=== PATIENT | female | born 1935 | race Caucasian/White ===

== ENCOUNTER 2019-07-31 19:01 | Inpatient (IN) | payer OTHER, MEDICARE ==
[~2019-07-31] VITALS: Ht 152.4 cm; Wt 57.2 kg
[~2019-07-31 19:01] MED LIST: ALDACTONE25 MG PO; ASPIRIN81 M2 PO; BENTYL 20 MG TA20 M1 PO; BETAMETHASONE V15 GM TOP; CELEBREX 200 M200 M1 PO; D3-5050000 UNIT PO; FEMARA2.5 MG PO; FOLBIC RF TABL1 EACH PO; LEVOCETIRIZINE D5 MG PO; LIDODERM1 EACH TRANSDERM; LISINOPRIL2.5 MG PO; MEDROLDOSEPACK PO; NEURONTIN 300300 M1 PO; NORCO 5-325 TA1 EACH PO; OMEPRAZOLE 20 M20 M1 PO; PAXIL10 MG PO; PROLOPRIM100 MG PO; ROXICODONE5 MG PO; TRAZODONE HCL50 MG PO; UNICOMPLEX M TA1 TA1 PO; ZOCOR 10 MG TAB10 M1 PO
[2019-07-31 19:04] VITALS: BP 130/78
[2019-07-31 19:49] LABS: HEMATOCRIT 40.2 % (37.0-47.0); HEMOGLOBIN 12.9 gm/dL (12.0-15.0); MCH 29.2 pg (26.0-34.0); MCHC 32.1 g/dL (28.0-37.0); MCV 90.9 fL (80.0-100.0); PLATELET COUNT 223 thou/uL (150-400); RBC 4.42 mil/uL (4.20-5.00); RDW 13.7 % (10.5-14.5); WBC 3.4 thou/uL (4.0-11.0)
[2019-07-31 19:54] LABS: CREATININE 1.3 mg/dL (0.6-1.0); POTASSIUM 4.4 mmol/L (3.5-5.1)
[2019-07-31 20:01] LABS: ALBUMIN 4.8 g/dL (3.4-5.0); TOTAL BILIRUBIN 0.3 mg/dL (<0.1-1.0)
[2019-07-31 20:21] LABS: ABSOLUTE NEUTROPHILS 1.2 thou/uL (1.4-8.2)
[2019-07-31 20:22] LABS: ANISOCYTOSIS 1+
[2019-07-31 21:11] LABS: ICTOTEST (BILI CONFIRMATORY) Negative (Negative); URINE BILIRUBIN NEGATIVE (Negative); URINE BLOOD 2+ (Negative); URINE CLARITY CLEAR; URINE COLOR YELLOW; URINE GLUCOSE-RANDOM* NEGATIVE (Negative); URINE KETONES TRACE (Negative); URINE LEUKOCYTES-REFLEX NEGATIVE (Negative); URINE NITRITE-REFLEX NEGATIVE (Negative); URINE PROTEIN (DIPSTICK) 1+ (Negative); URINE SPECIFIC GRAVITY >= 1.030 (1.005-1.035); URINE UROBILINOGEN 0.2 E.U./dl (0.2-1.0)
[2019-07-31 21:35] LABS: CASTS None Seen /LPF (None Seen); SQUAMOUS 0-3 Few /LPF (0-3)
[2019-07-31 21:36] LABS: AMORPHOUS URATES Moderate /LPF (None Seen); BACTERIA-REFLEX 1-9 Few /HPF (None Seen); HYALINE CASTS 0-3 Few /LPF (None Seen); URINE RBC 0-2 Rare /HPF (0-2)
[2019-07-31 21:37] LABS: URINE WBC-REFLEX None Seen /HPF (0-5)
[2019-08-01] VITALS (9 sets, daily range): BP systolic 101–130; BP diastolic 57–67
--- NOTE | 2019-08-01 07:31 | NUR ---
Patient arrived at 0635 to the unit via stretcher accompanied by her . Patient settled in bed and placed on the cardiac rehabilitation program director. Report given to oncoming RN. Care relinquished.
--- NOTE | 2019-08-01 08:21 | EKG ---
[facility] [place] [address] ELECTROCARDIOGRAM REPORT Name: LOUIS LEE I Room #: 248-P ADM IN M.R.#: [id number] Admission: 07/31/19 Attend Phys: Alonso Moreno MD Discharge: Date of : 35 Report #: [id number] THIS REPORT FOR: cc: Pernell Ronquillo MD, Bernard O. MD Couchonnal, Luis F. MD ~ THIS REPORT FOR: //name// [facility] ED Test Date: 2019-07-31 Test Time: 19:53:32 Pat Name: LOUIS LEE Department: Room: 248 Gender: F Parliamentary Counsel: no : 1935 Requested By: Kathryn Donato Order Number: [id number] MD: Joshua Matthew Measurements Intervals [place] Rate: 139 P: 192 WY: 129 QRS: 79 QRSD: 117 T: -11 QT: 315 QTc: 479 Interpretive Statements Sinus tachycardia Right bundle branch block No previous ECG available for comparison Electronically Signed On 08-01-2019 8:20:24 EFFICIENCY ENGINEER by Joshua Matthew [email or web address] <ELECTRONICALLY SIGNED> By: Joshua Matthew MD 08/01/19819 52 52 Joshua Matthew MD /EPI
[2019-08-01 09:34] LABS: HEMATOCRIT 30.5 % (37.0-47.0); MCH 29.4 pg (26.0-34.0); MCHC 32.5 g/dL (28.0-37.0); MCV 90.5 fL (80.0-100.0); RBC 3.37 mil/uL (4.20-5.00); RDW 13.3 % (10.5-14.5); WBC 3.1 thou/uL (4.0-11.0)
[2019-08-01 09:37] LABS: HEMOGLOBIN 9.9 gm/dL (12.0-15.0)
[2019-08-01 09:45] LABS: CALCIUM 8.9 mg/dL (8.5-10.1); CREATININE 0.9 mg/dL (0.6-1.0); POTASSIUM 3.7 mmol/L (3.5-5.1)
--- NOTE | 2019-08-01 09:57 | NUR ---
chart review. flue lining dipper for gi polish visit, pt going to think about upper and lower colon scope possible tomorrow. pt in room with spouse and daughter. pt goes by pat. pt is a & o x 4, pleasant and able to make her needs know. intro to cm, transition of care and hh. " oh i need to get cleaned up i am going again, its soaked. bedside nurse and cm changed bedding and clean linen and gown. pt and spouse tayler reported " live in apartment, ground level. no steps. independent. manage own medication. hx of breast ca with bilat mastectomy years ago. use cane out side of the home. stopped driving after bilat knee replacement and then just had hip done as well. had hh for bit when lived out stated but nurse did not know how to do the dressing changes so did it. no skilled rehab in past. no co of pain."/pat. not anticpated needs, will cont following as needed for dc needs.
--- NOTE | 2019-08-01 10:18 | 2DMMODE ---
[facility] [place] [address] 2 D/M-MODE ECHOCARDIOGRAM Name: LOUIS LEE Room #: 248-P ADM IN M.R.#: [id number] Admission: 07/31/19 Attend Phys: Alonso Moreno MD Discharge: Date of : 35 Report #: [id number] THIS REPORT FOR: cc: Pernell Ronquillo MD, Bernard O. MD Lammoglia, Francisco J. MD ~ APPROVED REPORT Study performed: 08/01/2019 09:24:28 EXAM: Comprehensive 2D, Doppler, and color-flow Echocardiogram Patient Location: ICU Room #: 248 Status: routine BSA: 1.49 HR: 62 bpm BP: 111/61 mmHg Rhythm: Sinus/Irregular/RBBB Other Information Study Quality: Adequate/patient flat on back. Indications SVT/Aflutter. Hx: RBBB, HTN, HLP. 2D Dimensions RVDd: 30.29 mm IVSd: 9.54 (7-11mm) LVOT Diam: 19.51 (18-24mm) LVDd: 38.54 mm PWd: 10.23 (7-11mm) LVDs: 23.47 (25-40mm) Aortic Root: 30.58 mm Volumes Left Atrial Volume (Systole) Single Plane 4CH: 58.55 mL Single Plane 2CH: 52.72 mL LA ESV Index: 42.00 mL/m2 Aortic Valve AoV Peak Shahid.: 1.49 m/s AO Peak Gr.: 8.89 mmHg LVOT Max P.17 mmHg LVOT Max V: 1.02 m/s [facility] [address] [place] [address] 2 D/M-MODE ECHOCARDIOGRAM Name: LOUIS LEE I Room #: 248-P [facility].#: [id number] Admission: 07/31/19 Attend Phys: Alonso Moreno MD Discharge: Date of : 35 Report #: [id number] CLARICE Vmax: 2.05 cm2 Mitral Valve E/A Ratio: 1.3 MV Decel. Time: 235.67 ms MV E Max Shahid.: 1.23 m/s MV A Shahid.: 0.92 m/s MV PHT: 68.35 ms MVA (PHT): 2.86 cm2 IVRT: 64.59 ms Pulmonary Valve PV Peak Shahid.: 0.98 m/s PV Peak Gr.: 3.85 mmHg Pulmonary Vein P Vein S: 1.01 m/s P Vein A: 0.41 m/s P Vein D: 0.76 m/s P Vein A Dur.: 152.2 msec P Vein S/D Ratio: 1.33 Tricuspid Valve TR Peak Shahid.: 2.75 m/s RAP Estimate: 10.00 mmHg TR Peak Gr.: 30.35 mmHg PA Pressure: 40.00 mmHg Left Ventricle The left ventricle is normal size. There is normal LV segmental wall motion. There is normal left ventricular wall thickness. Left ventricular systolic function is normal. LVEF is 60-65%. Moderate diastolic dysfunction is present (pseudonormal filling). Right Ventricle The right ventricle is normal size. The right ventricular systolic function is normal. Atria Left atrium is moderate to severely dilated. The right atrium size is normal. Aortic Valve The aortic valve is normal in structure; mildly sclerotic leaflets. No aortic regurgitation is present. There is no aortic valvular stenosis. Mitral Valve Mitral valve leaflets are mildly thickened and calcified. Heavily calcified annulus. Mild to moderate mitral regurgitation. No evidence [facility] [address] [place] [address] 2 D/M-MODE ECHOCARDIOGRAM Name: LOUIS LEE I Room #: 248-P [facility] IN .R.#: [id number] Admission: 07/31/19 Attend Phys: Alonso Moreno MD Discharge: Date of : 35 Report #: [id number] of mitral valve stenosis. Tricuspid Valve The tricuspid valve is normal in structure. Mild tricuspid regurgitation. Estimated PAP is 40-45mmHg. Pulmonic Valve Pulmonic valve is not well visualized. Trace pulmonic regurgitation. Great Vessels The aortic root is normal in size. Ascending aorta is not well visualized. IVC is dilated and collapses <50% with inspiration. Pericardium There is no pericardial effusion. <Conclusion> The left ventricle is normal size. LVEF is 60-65%. Left atrium is moderate to severely dilated. The aortic valve is normal in structure; mildly sclerotic leaflets. Mitral valve leaflets are mildly thickened and calcified. Heavily calcified annulus. Mild to moderate mitral regurgitation. No evidence of mitral valve stenosis. The tricuspid valve is normal in structure. Mild tricuspid regurgitation. Estimated PAP is 40-45mmHg. Pulmonic valve is not well visualized. Trace pulmonic regurgitation. There is no pericardial effusion. <ELECTRONICALLY SIGNED> By: Sekou Christiansen MD 08/01/19 1017 [id number] [id number] Sekou Christiansen MD /INF
--- NOTE | 2019-08-01 16:07 | NUR ---
PT ALERT AND ORIENTED. VSS. ADMISSION HX AND ASSESSMENT COMPLETED. PT PLEASANT AND COOPERATIVE WITH CARES. DROPLET ISOLATION INITIATED. PT DENIED HAVING PAIN OR DISCOMFORT. FAMILY AT THE BEDSIDE. EVALUATED BY PHYSICAL THERAPY. UP IN THE CHAIR THIS AFTERNOON. FALL PRECAUTION IN PLACE. CHECKED FREQUENTLY AND NEEDS MET. WILL CONTINUE TO MONITOR.
--- NOTE | 2019-08-01 16:55 | EKG ---
[facility] [place] [address] ELECTROCARDIOGRAM REPORT Name: LOUIS LEE I Room #: 248-P ADM IN M.R.#: [id number] Admission: 07/31/19 Attend Phys: Alonso Moreno MD Discharge: Date of : 35 Report #: [id number] THIS REPORT FOR: cc: Pernell Ronquillo MD, Bernard O. MD Couchonnal, Luis F. MD ~ THIS REPORT FOR: //name// [facility] Test Date: 2019-08-01 Test Time: 08:23:51 Pat Name: LOUIS LEE Department: Room: 248 P Gender: F Repair Supervisor: ERICKA : 1935 Requested By: Bettye Vergara Order Number: [id number] MD: Joshua Matthew Measurements Intervals [place] Rate: 61 P: 26 WY: 175 QRS: 79 QRSD: 135 T: 44 QT: 470 QTc: 474 Interpretive Statements Sinus rhythm Right bundle branch block Compared to ECG 07/31/2019 19:53:32 Sinus tachycardia no longer present Electronically Signed On 08-01-2019 16:54:39 ASSISTANT BOILER OPERATOR by Joshua Matthew [email or web address] <ELECTRONICALLY SIGNED> By: Joshua Matthew MD 08/01/19 1654 2 Joshua Matthew MD /EPI
[2019-08-02 04:04] VITALS: BP 125/66
--- NOTE | 2019-08-02 05:08 | NUR ---
Pt has been experiencing frequency, urgency and burning with urination through the night. Per , his takes a med called trimethoprim every morning, to combat recurrent UTI and that she hasn't had it all week. She requests the bedpan frequently, with no voids, but then is incontinent with a large quantity of urine voided. Pt has not rested well, has been treated twice for RLE discomfort, rated 7-8/10 with some relief obtained. She is on room air, her heart rate is irregular, otherwise her vitals are WNL. The bed is in the low/locked position, the bed alarm is set, the siderails are up x 4 and the call light is within reach. Pt is slowly progressing towards POC goals. Will continue to monitor.
[2019-08-02 05:40] LABS: HEMOGLOBIN 9.7 gm/dL (12.0-15.0); MCH 29.8 pg (26.0-34.0); MCHC 32.5 g/dL (28.0-37.0); MCV 91.7 fL (80.0-100.0); RBC 3.27 mil/uL (4.20-5.00); RDW 13.7 % (10.5-14.5); WBC 3.8 thou/uL (4.0-11.0)
[2019-08-02 08:00] VITALS: BP 133/56
--- NOTE | 2019-08-02 11:14 | EKG ---
[facility] [place] [address] ELECTROCARDIOGRAM REPORT Name: LOUIS LEE I Room #: 248-P ADM IN M.R.#: [id number] Admission: 07/31/19 Attend Phys: Alonso Moreno MD Discharge: Date of : 35 Report #: [id number] THIS REPORT FOR: cc: Pernell Ronquillo MD, Bernard O. MD Couchonnal, Luis F. MD ~ THIS REPORT FOR: //name// [facility] Test Date: 2019-08-02 Test Time: 08:30:23 Pat Name: LOUIS LEE Department: Room: 248 P Gender: F Office Machine Embossograph Operator: Krystyna JIMENEZ : 1935 Requested By: Bettye Vergara Order Number: [id number] MD: Joshua Matthew Measurements Intervals [place] Rate: 55 P: 36 OR: 169 QRS: 94 QRSD: 133 T: 35 QT: 451 QTc: 432 Interpretive Statements Sinus rhythm Probable left atrial enlargement Right bundle branch block Compared to ECG 08/01/2019 08:23:51 No significant changes Electronically Signed On 08-02-2019 11:13:28 FARM AGENT by Joshua Matthew [email or web address] <ELECTRONICALLY SIGNED> By: Joshua Matthew MD 08/02/19 1113 9 9 Joshua Matthew MD /EPI
[2019-08-02 12:00] VITALS: BP 146/74
--- NOTE | 2019-08-02 16:20 | NUR ---
cm notified by bedside nurse that pt worked with pt and see going to need some home health at [place] today. cm went and visited with pt and spouse at bedside. hh list choices provided " not every had hh here only when lived out of stated and it was not that great."/pt and . after going over hh list choice front and back of page, referral to be [facility]. pt pcp is dr traylor.
[2019-08-02 16:25] VITALS: BP 146/74
--- NOTE | 2019-08-02 16:49 | NUR ---
PT DISCHARGING TODAY TO HOME WITH HH PT NEEDS PHYSICAL THERAPY ONLY FAXED REFERRAL TO [facility] SPOKE WITH TORIBIO IN INTAKE SHE RECEIVED REFERRAL AND CAN ACCEPT.
--- NOTE | 2019-08-02 16:53 | NUR ---
IF PT DISCHARGES TODAY TO HOME WITH HH FAX DC ORDERS/SUMMARY TO [phone].
[2019-08-02] MEDS ORDERED: OSELTAMIVIR PHO75 MG PO (17:02)
[2019-08-02] MEDS ORDERED: METOPROLOL SUCC25 M1 PO (17:04)
[2019-08-02 17:10] VITALS: BP 146/74
--- NOTE | 2019-08-02 17:34 | NUR ---
ASSUMED CARE OF PT 0700, PT IS A GCS OF 4, DENIES PAIN OR DISCOMFORT. PT NOTED TO HAVE FREQUENCY WITH URINATION. PT DENIES NAUSEA AND STATES SHE IS READY TO GO HOME. DR MORTON HAS BEEN TO SEE PT AND ORDERS RCVD TO D/C PT TO HOME WITH HOME HEALTH. DOG BOARDER HAS BEEN NOTIFIED AND ORDERS CARRIED THROUGH. [facility] TO NOTIFY PT OF VISIT APPT ON WEDNESDAY. D/C INSTRUCTIONS GIVEN TO PT, ALL QUESTIONS ANSWERED. HERE WITH PT AND IS AWARE OF PLANS.
--- NOTE | 2019-08-03 10:17 | NUR ---
PT DISCHARGED LAST EVENING TO HOME WITH [facility] FAXED DC ORDERS/SUMMARY RECEIVED CONFIRMATION AND SPOKE WITH INTAKE THEY WILL NOTIFY PT TIME OF VISITS.
== END 2019-08-02 17:20 | disposition home health service (06) | DRG 308 ==
LOC: ER 19:01 → EROBS 21:41 → ICU 21:41 → EROBS 08-01 03:58 → ICU 08-01 06:30
PROVIDERS: Nurse Practitioner; Nurse Practitioner Family; Physician Assistant; ADMIT Internal Medicine
DX: I48.91 Unspecified atrial fibrillation (principal); J10.00 Influenza due to other identified influenza virus with unspecified type of pneumonia; N17.0 Acute kidney failure with tubular necrosis; C50.919 Malignant neoplasm of unspecified site of unspecified female breast; Z96.653 Presence of artificial knee joint, bilateral; Z96.649 Presence of unspecified artificial hip joint; M19.90 Unspecified osteoarthritis, unspecified site; K21.9 Gastro-esophageal reflux disease without esophagitis; F32.9 Major depressive disorder, single episode, unspecified; E78.5 Hyperlipidemia, unspecified; G47.00 Insomnia, unspecified; E86.0 Dehydration; I34.1 Nonrheumatic mitral (valve) prolapse; I34.0 Nonrheumatic mitral (valve) insufficiency; E78.00 Pure hypercholesterolemia, unspecified; I45.10 Unspecified right bundle-branch block; R10.9 Unspecified abdominal pain; I12.9 Hypertensive chronic kidney disease with stage 1 through stage 4 chronic kidney disease, or unspecified chronic kidney disease; N18.9 Chronic kidney disease, unspecified; D64.9 Anemia, unspecified; M41.85 Other forms of scoliosis, thoracolumbar region; Z82.49 Family history of ischemic heart disease and other diseases of the circulatory system; Z79.01 Long term (current) use of anticoagulants; Z90.13 Acquired absence of bilateral breasts and nipples; Z79.2 Long term (current) use of antibiotics; Z79.891 Long term (current) use of opiate analgesic; Z79.899 Other long term (current) drug therapy
CPT/HCPCS: 10203

== ENCOUNTER → 2019-12-20 | Outpatient (CLI) | payer OTHER, MEDICARE ==
[~2019-12-20] MED LIST changes: +METOPROLOL SUCC25 M1 PO; +OSELTAMIVIR PHO75 MG PO
== END ==
LOC: SJCVCIMAG 12:20
PROVIDERS: ATTEND Internal Medicine Cardiovascular Disease
DX: I08.8 Other rheumatic multiple valve diseases (principal); I10 Essential (primary) hypertension; E78.5 Hyperlipidemia, unspecified; I45.10 Unspecified right bundle-branch block

== ENCOUNTER → 2020-11-14 | Outpatient (CLI) | payer OTHER, MEDICARE | LOC: SJCVC 13:27 | PROVIDERS: ATTEND Internal Medicine Cardiovascular Disease | DX: I45.2 Bifascicular block (principal); R94.31 Abnormal electrocardiogram [ECG] [EKG]; I49.1 Atrial premature depolarization; I10 Essential (primary) hypertension; I34.1 Nonrheumatic mitral (valve) prolapse; E78.5 Hyperlipidemia, unspecified; I34.0 Nonrheumatic mitral (valve) insufficiency; I45.10 Unspecified right bundle-branch block; Z86.16 Personal history of COVID-19; Z72.89 Other problems related to lifestyle; Z79.82 Long term (current) use of aspirin; Z79.899 Other long term (current) drug therapy ==

== ENCOUNTER → 2021-04-10 | Outpatient (CLI) | payer OTHER, MEDICARE | LOC: SJCVCIMAG 09:39 | PROVIDERS: ATTEND Internal Medicine Cardiovascular Disease | DX: I08.8 Other rheumatic multiple valve diseases (principal); I10 Essential (primary) hypertension; E78.5 Hyperlipidemia, unspecified; I45.10 Unspecified right bundle-branch block; Z72.89 Other problems related to lifestyle; Z79.82 Long term (current) use of aspirin; Z79.899 Other long term (current) drug therapy; Z86.16 Personal history of COVID-19 ==